=== PATIENT | female | born 1990 | race Hispanic/Latino ===

== ENCOUNTER 2018-07-06 04:00 | Emergency (ER) | payer OTHER ==
[~2018-07-06] VITALS: Ht 165.1 cm; Wt 86.2 kg
--- OUTSIDE RECORDS SUMMARY | 2018-07-06 04:04 | XMS REPORT | Summary of Care ---
Author Author [facility] Organization [facility] Address Unknown Phone Unavailable Encounter HQ Encntr_alias(FIN) [id number] Date(s): 05/14/16 - 05/14/16 [facility] [id number] [place] [address]- Discharge Disposition: Home or Self Care Attending Physician: Shabbir Chung MD Referring Physician: Shabbir Chung MD Vital Signs No data available for this section Problem List No data available for this section Allergies, Adverse Reactions, Alerts No data available for this section Medications No data available for this section Results No data available for this section Immunizations No data available for this section Procedures No data available for this section Social History No data available for this section Assessment and Plan No data available for this section
--- OUTSIDE RECORDS SUMMARY | 2018-07-06 04:04 | XMS REPORT | Continuity of Care Document ---
Author Author [facility] Interface Address Unknown Phone Unavailable Problems Problem Status Onset Date Classification Date Reported Comments Source 1, 0, EDC: 02/05/17- 39 WKS, 0 DAYS Active 01/23/2017 [facility] Discharge Diagnosis: False labor before 37 completed weeks of gestation in third trimester 01/20/2017 01/23/2017 [facility] Resolved 01/20/2017 Problem 02/12/2017 [facility] ABD PAIN Active 01/20/2017 [facility] Discharge Diagnosis: Acute vaginitis 01/14/2017 01/17/2017 [facility] Discharge Diagnosis: 01/14/2017 01/17/2017 [facility] CONTRACTIONS Active 01/14/2017 [facility] ALLERGIC REACTION Active 01/05/2017 [facility] Discharge Diagnosis: Urethritis 09/19/2016 09/22/2016 [facility] CRAMPING Active 09/19/2016 [facility] R19.01 RIGHT UPPER QUADRANT ABDOMINAL SW Active 05/18/2016 [facility] R10.9 UNSPECIFIED ABDOMINAL PAIN, R10.11 Active 05/09/2016 [facility] 40 weeks gestation of Active Problem 02/12/2017 [facility] FAILED INDUCTION OF LABOR, UNSPECIFIED Active [facility] Medications Medication Details Route Status Patient Instructions Ordering Provider Order Date Source ibuprofen 600 mg oral tablet 600 mg=1 tab, PO, Q6H, # 30 caplet, 0 Refill(s) No Longer Active 02/09/2017 [facility] Ibuprofen 600 mg, 1 tab, Route: PO, Drug form: TAB, Q6H, Dosing Weight 106.364, kg, Start date: 02/07/17 12:00:00 CDT, Duration: 30 day, Stop date: 03/09/17 6:00:00 CDTNotes: (Same as: Motrin) "Do Not Crush" Take with food. No Longer Active 02/07/2017 [facility] Multivitamins oral tablet 1 tab, Route: PO, Drug Form: TAB, Dosing Weight 106.364, kg, Daily, Start date: 02/07/17 9:00:00 CDT, Duration: 30 day, Stop date: 03/08/17 9:00:00 CDT No Longer Active 02/07/2017 [facility] Acetaminophen 325 MG / Hydrocodone Bitartrate 5 MG Oral Tablet 1 tab, Route: PO, Drug Form: TAB, Dosing Weight 106.364, kg, Q4H, PRN Pain Score 4-6, Start date: 02/07/17 7:10:00 CDT, Duration: 30 day, Stop date: 03/09/17 7:09:00 CDTNotes: (Same as: [place] 325/5) Do not exceed 4gm/day of acetaminophen. No Longer Active 02/07/2017 [facility] Acetaminophen 325 MG / Hydrocodone Bitartrate 10 MG Oral Tablet 1 tab, Route: PO, Drug Form: TAB, Dosing Weight 106.364, kg, Q4H, PRN Pain Score 7-10, Start date: 02/07/17 7:10:00 CDT, Duration: 30 day, Stop date: 03/09/17 7:09:00 CDTNotes: Do not exceed 4gm/day of acetaminophen. (Same as: [place] 325/10) No Longer Active 02/07/2017 [facility] Lactated Ringers 1,000 mL 1,000 mL, Rate: 100 ml/hr, Infuse over: 10 hr, Route: IV, Dosing Weight 106.364 kg, Total Volume: 1,000, Start date: 02/07/17 7:10:00 CDT, Duration: 30 day, Stop date: 03/09/17 7:09:00 CDT No Longer Active 02/07/2017 [facility] Oxytocin 30 unit, 500 mL, Rate: 42 ml/hr, Infuse over: 11.9 hr, Dosing Weight 106.364, kg, Route: IV, Total Volume: 500 mL, Start date: 02/07/17 7:10:00 CDT, Duration: 2 day, Stop date: 02/09/17 7:09:00 CDT, Replace Every: 11.9 hr No Longer Active 02/07/2017 [facility] lanolin topical 1 appl, Route: TOP, PRN, Drug form: CRM, PRN Other -See Comment, Start date: 02/07/17 7:10:00 CDT, Duration: 30 day, Stop date: 03/09/17 7:09:00 CDT No Longer Active 02/07/2017 [facility] zolpidem 5 mg, 1 tab, Route: PO, Drug form: TAB, Bedtime, Dosing Weight 106.364, kg, PRN Sleep, Start date: 02/07/17 7:10:00 CDT, Duration: 30 day, Stop date: 03/09/17 7:09:00 CDTNotes: (Same As: Ambien) No Longer Active 02/07/2017 [facility] Methylergonovine 0.2 mg, 1 mL, Route: IM, Drug form: INJ, PRN, Dosing Weight 106.364, kg, PRN Other -See Comment, Start date: 02/07/17 7:10:00 CDT, Duration: 30 day, Stop date: 03/09/17 7:09:00 CDTNotes: (Same as:Methergine) No Longer Active 02/07/2017 [facility] Benzocaine 200 MG/ML Topical Putney [Dermoplast] 1 spray, Route: TOP, PRN, Drug form: SPRY, PRN Irritation, Start date: 02/07/17 7:10:00 CDT, Duration: 30 day, Stop date: 03/09/17 7:09:00 CDTNotes: (Same As: Dermoplast) WASTE: Aerosol - Return to Pharmacy FOR EXTERNAL USE ONLY No Longer Active 02/07/2017 [facility] Docusate 100 mg, 1 cap, Route: PO, Drug form: CAP, BID, Dosing Weight 106.364, kg, PRN Constipation, Start date: 02/07/17 7:10:00 CDT, Duration: 30 day, Stop date: 03/09/17 7:09:00 CDTNotes: (Same as: Colace) (Do Not Crush) No Longer Active 02/07/2017 [facility] Ondansetron 4 mg, 2 mL, Route: IVP, Drug form: INJ, Q8H, Dosing Weight 106.364, kg, PRN Nausea & Vomiting, Start date: 02/07/17 7:10:00 CDT, Duration: 30 day, Stop date: 03/09/17 7:09:00 CDTNotes: (Same as: Zofran) MEDICATION WASTE Product Size: 4 mg Product Wasted: ___ mg No Longer Active 02/07/2017 [facility] Bisacodyl 15 mg, 3 tab, Route: PO, Drug form: ECTAB, Daily, Dosing Weight 106.364, kg, PRN Other -See Comment, Start date: 02/07/17 7:10:00 CDT, Duration: 30 day, Stop date: 03/09/17 7:09:00 CDTNotes: (Same As: Alejandra ulcolax Correctol) (Do Not Crush) "Do Not Crush" No Longer Active 02/07/2017 [facility] Ampicillin 2 gm, Route: IVPB, ABXQ6H, Dosing Weight 106.364, kg, Start date: 02/07/17 4:00:00 CDT, Duration: 30 day, Stop date: 03/08/17 22:00:00 CDTNotes: (Same as: Chung) MEDICATION WASTE Product Size: 2000 mg Product Wasted: ___ mg No Longer Active 02/07/2017 [facility] Tylenol 325 mg, 1 tab, Route: PO, Drug form: TAB, Q6H, Dosing Weight 106.364, kg, PRN For Temp > 100.4 F, Start date: 02/07/17 3:24:00 CDT, Duration: 30 day, Stop date: 03/09/17 3:23:00 CDTNotes: Do not exceed 4 gm/day. (Same as: Tylenol) No Longer Active 02/07/2017 [facility] Misoprostol 25 microgram, 0.25 tab, Route: VAG, Drug form: TAB, Q3H, Dosing Weight 106.364, kg, Start date: 02/05/17 20:00:00 CDT, Duration: 30 day, Stop date: 03/07/17 17:00:00 CDTNotes: (Same as:Cytotec) Victor Hugo e with food No Longer Active 02/06/2017 [facility] Famotidine 20 mg, 2 mL, Route: IVP, Drug form: INJ, ONCALL, Dosing Weight 106.364, kg, Start date: 02/05/17 20:00:00 CDT, Duration: 30 day, Stop date: 03/07/17 19:59:00 CDTNotes: (Same as: Pepcid) Can be dilute in 5- 10cc NS IVP: Slow IV push over at least 2 minutes. No Longer Active 02/06/2017 [facility] Methylergonovine 0.2 mg, 1 mL, Route: IM, Drug form: INJ, ONCALL, Dosing Weight 106.364, kg, Start date: 02/05/17 20:00:00 CDT, Duration: 30 day, Stop date: 03/07/17 19:59:00 CDTNotes: (Same as:Methergine) No Longer Active 02/06/2017 [facility] Citric Acid / sodium citrate 30 mL, Route: PO, Drug Form: SOLN, Dosing Weight 106.364, kg, ONCALL, Start date: 02/05/17 20:00:00 CDT, Duration: 30 day, Stop date: 03/07/17 19:59:00 CDTNotes: (Same As: Bicitra) No Longer Active 02/06/2017 [facility] Carboprost 250 microgram, 1 mL, Route: IM, Drug form: INJ, ONCALL, Dosing Weight 106.364, kg, Start date: 02/05/17 20:00:00 CDT, Duration: 30 day, Stop date: 03/07/17 19:59:00 CDTNotes: (Same As: Hemabate) No Longer Active 02/06/2017 [facility] Oxytocin 30 unit, 500 mL, Rate: Titrate, Dosing Weight 106.364, kg, Route: IV, Total Volume: 500 mL, Start date: 02/05/17 19:15:00 CDT, Duration: 2 day, Stop date: 02/07/17 19:14:00 CDT, Replace Every: 24 hr No Longer Active 02/06/2017 [facility] Butorphanol 2 mg, 1 mL, Route: IVP, Drug form: INJ, Q2H, Dosing Weight 106.364, kg, PRN Pain Score 7-10, Start date: 02/05/17 19:13:00 CDT, Duration: 30 day, Stop date: 03/07/17 19:12:00 CDTNotes: (Same As: Stadol) MEDICATION WASTE Product Size: 2 mg Product Wasted: ___ mg No Longer Active 02/06/2017 [facility] Lidocaine Hydrochloride 10 MG/ML Injectable Solution 50 mg, 5 mL, Route: PERCUT, Drug Form: INJ, Dosing Weight 106.364, kg, PRN, PRN Other -See Comment, Start date: 02/05/17 19:13:00 CDT, Duration: 1 doses or times, Stop date: Limited # of timesNotes: (Same as: Xylocaine) No Longer Active 02/06/2017 [facility] Ondansetron 4 mg, 2 mL, Route: IVP, Drug form: INJ, Q8H, Dosing Weight 106.364, kg, PRN Nausea & Vomiting, Start date: 02/05/17 19:13:00 CDT, Duration: 30 day, Stop date: 03/07/17 19:12:00 CDTNotes: (Same as: Zofrsamantha) MEDICATION WASTE Product Size: 4 mg Product Wasted: ___ mg No Longer Active 02/06/2017 [facility] Acetaminophen 325 MG / Hydrocodone Bitartrate 5 MG Oral Tablet 2 tab, Route: PO, Drug Form: TAB, Dosing Weight 106.364, kg, Q4H, PRN Pain Score 7-10, Start date: 02/05/17 19:13:00 CDT, Duration: 30 day, Stop date: 03/07/17 19:12:00 CDTNotes: (Same as: [place] 325/5) Do not exceed 4gm/day of acetaminophen. No Longer Active 02/06/2017 [facility] Ibuprofen 600 mg, 1 tab, Route: PO, Drug form: TAB, Q6H, Dosing Weight 106.364, kg, PRN Other -See Comment, Start date: 02/05/17 19:13:00 CDT, Duration: 30 day, Stop date: 03/07/17 19:12:00 CDTNotes: (Same as: Motrin) "Do Not Crush" Take with food. No Longer Active 02/06/2017 [facility] Terbutaline 0.25 mg, 0.25 mL, Route: SUB-Q, Drug form: INJ, PRN, Dosing Weight 106.364, kg, PRN Other -See Comment, Start date: 02/05/17 19:13:00 CDT, Duration: 1 doses or times, Stop date: Limited # of timesNotes: DO NOT USE IN TRAFFIC OBSERVER AREA (Same As: Landon) No Longer Active 02/06/2017 [facility] Oxytocin 30 unit, 500 mL, Rate: 42 ml/hr, Infuse over: 11.9 hr, Dosing Weight 106.364, kg, Route: IV, Total Volume: 500 mL, Start date: 02/05/17 19:13:00 CDT, Duration: 2 day, Stop date: 02/07/17 19:12:00 CDT, Replace Every: 11.9 hr No Longer Active 02/06/2017 [facility] Calcium Chloride 0.0014 MEQ/ML / Potassium Chloride 0.004 MEQ/ML / Sodium Chloride 0.103 MEQ/ML / Sodium Lactate 0.028 MEQ/ML Injectable Solution 1,000 mL, 1,000 ml/hr, Infuse Over: 1 hr, Route: IV, 1,000, Drug form: INJ, ONCE, Dosing Weight 106.364 kg, Start date: 02/05/17 19:13:00 CDT, Stop date: 02/05/17 19:13:00 CDT, Bolus for regional anesthesia per unit protocol No Longer Active 02/06/2017 [facility] Lactated Ringers 1,000 mL 1,000 mL, Rate: 125 ml/hr, Infuse over: 8 hr, Route: IV, Dosing Weight 106.364 kg, Total Volume: 1,000, Start date: 02/05/17 19:13:00 CDT, Duration: 30 day, Stop date: 03/07/17 19:12:00 CDT No Longer Active 02/06/2017 [facility] 1 oral capsule 0 Refill(s) Active 01/21/2017 [facility] Metronidazole 0.0075 MG/MG Vaginal Gel [MetroGel] 1 appl, VAG, Bedtime, X 5 day, # 1 ea, 0 Refill(s) Active 01/15/2017 [facility] Azithromycin 1,000 mg, 4 tab, Route: PO, Drug form: TAB, ONCE, Dosing Weight 93.182, kg, Start date: 09/19/16 17:09:00 CDT, Stop date: 09/19/16 17:09:00 CDTNotes: Take 1 hour before or 2 hours after meals. (Same As: Zithromax) Inactive 09/19/2016 [facility] Ceftriaxone 250 mg, Route: IM, Drug form: PDR/INJ, ONCE, Dosing Weight 93.182, kg, Priority: STAT, Start date: 09/19/16 17:09:00 CDT, Stop date: 09/19/16 17:09:00 CDTNotes: (Same As: Rocephin) Inactive 09/19/2016 [facility] Allergies, Adverse Reactions, Alerts Substance Category Reaction Severity Reaction type Status Date Reported Comments Source Immunizations Immunization Date Given Site Status Last Updated Comments Source diphtheria/pertussis, acel/tetanus adult 02/09/2017 Not Given [facility] Results Order Name Results Value Reference Range Date Interpretation Comments Source HEMATOLOGY Hct 31.6 % 36.0 - 48.0 02/08/2017 [facility] HEMATOLOGY Hgb 10.7 g/dL 12.0 - 16.0 02/08/2017 [facility] BLOOD BANK RESULTS ABO/Rh O POS 02/06/2017 [facility] BLOOD BANK RESULTS Antibody Scrn Negative (02/05/17 7:25 PM) 02/06/2017 [facility] BLOOD BANK RESULTS Rhig Reqd See Note 1 (02/05/17 7:25 PM) 02/06/2017 Result Comment: 02/05/2017 20:21 [id number] This patient is not a candidate for Rh(O)D immune globulin. [facility] Segs 64.4 % 45.0 - 75.0 02/06/2017 [facility] Segs-Bands # 6.3 K/CMM 1.5 - 8.1 02/06/2017 [facility] Eosinophils 1.1 % 0.0 - 4.0 02/06/2017 [facility] Lymphocytes 26.2 % 20.0 - 40.0 02/06/2017 [facility] Basophils 0.5 % 0.0 - 1.0 02/06/2017 [facility] Monocytes 7.8 % 2.0 - 12.0 02/06/2017 [facility] Monocytes # 0.8 K/CMM 0.0 - 0.8 02/06/2017 [facility] HEMATOLOGY Eosinophils # 0.1 K/CMM 0.0 - 0.5 02/06/2017 [facility] Lymphocytes # 2.5 K/CMM 1.0 - 5.5 02/06/2017 [facility] HEMATOLOGY MCV 83.1 fL 80.0 - 98.0 02/06/2017 [facility] Hgb 12.1 g/dL 12.0 - 16.0 02/06/2017 [facility] HEMATOLOGY MCH 28.3 pg 27.0 - 31.0 02/06/2017 [facility] HEMATOLOGY Hct 35.7 % 36.0 - 48.0 02/06/2017 [facility] MPV 8.3 fL 7.4 - 10.4 02/06/2017 [facility] MCHC 34.0 g/dL 32.0 - 36.0 02/06/2017 [facility] HEMATOLOGY Platelet 264 K/CMM 133 - 450 02/06/2017 [facility] RDW 14.8 % 11.5 - 14.5 02/06/2017 [facility] WBC 9.7 K/CMM 3.7 - 10.4 02/06/2017 [facility] RBC 4.29 M/CMM 4.20 - 5.40 02/06/2017 [facility] IMMUNOLOGY HIV. Negative *NA* (02/05/17 7:25 PM) Negative 02/06/2017 [facility] Hep Bs Ag Negative *NA* (02/05/17 7:25 PM) Negative 02/06/2017 [facility] IMMUNOLOGY Treponemal Scr Non Reactive *NA* (02/05/17 7:25 PM) Non Reactive 02/06/2017 [facility] BODY FLUIDS Amnisure ROM Negative 1 (01/20/17 6:53 PM) Negative 01/20/2017 Result Comment: "Significant Findings called to Anjelica Pang at 01/20/2017 19:33 by Harini Perkins. Read Back OK." [facility] URINE AND STOOL UA Urobilinogen <=1.0 mg/dL 0.1 - 1.0 01/20/2017 [facility] URINE AND STOOL UA Amorph Olivia Occasional /HPF None Seen /HPF 01/20/2017 [facility] URINE AND STOOL UA Mucus Few /LPF None Seen /LPF 01/20/2017 [facility] URINE AND STOOL UA Leuk Est Large *ABN* (01/20/17 6:53 PM) Negative 01/20/2017 [facility] URINE AND STOOL UA Nitrite Negative (01/20/17 6:53 PM) Negative 01/20/2017 [facility] URINE AND STOOL UA Blood Negative (01/20/17 6:53 PM) Negative 01/20/2017 [facility] URINE AND STOOL UA Bili Negative *NA* (01/20/17 6:53 PM) Negative 01/20/2017 [facility] URINE AND STOOL UA WBC 26 /HPF 0 - 5 01/20/2017 [facility] URINE AND STOOL UA Sq Epi Moderate /LPF Few /LPF 01/20/2017 [facility] URINE AND STOOL UA Bacteria Occasional /HPF None Seen /HPF 01/20/2017 [facility] URINE AND STOOL UA RBC 4 /HPF 0 - 2 01/20/2017 [facility] URINE AND STOOL UA Turbidity Marked *ABN* (01/20/17 6:53 PM) Clear 01/20/2017 [facility] URINE AND STOOL UA pH 7.0 5.0 - 8.0 01/20/2017 [facility] URINE AND STOOL UA Spec Grav 1.012 <=1.030 01/20/2017 [facility] URINE AND STOOL UA Glucose Negative mg/dL Negative mg/dL 01/20/2017 [facility] URINE AND STOOL UA Protein Negative mg/dL Negative mg/dL 01/20/2017 [facility] URINE AND STOOL UA Ketones Negative mg/dL Negative mg/dL 01/20/2017 [facility] URINE AND STOOL UA Color Yellow *NA* (01/20/17 6:53 PM) Yellow 01/20/2017 [facility] URINE AND STOOL UA Urobilinogen <=1.0 mg/dL 0.1 - 1.0 01/15/2017 [facility] URINE AND STOOL UA Ketones Negative mg/dL Negative mg/dL 01/15/2017 [facility] URINE AND STOOL UA Blood Negative (01/14/17 7:57 PM) Negative 01/15/2017 [facility] URINE AND STOOL UA WBC 35 /HPF 0 - 5 01/15/2017 [facility] URINE AND STOOL UA Bacteria Occasional /HPF None Seen /HPF 01/15/2017 [facility] URINE AND STOOL UA RBC 3 /HPF 0 - 2 01/15/2017 [facility] URINE AND STOOL UA Nitrite Negative (01/14/17 7:57 PM) Negative 01/15/2017 [facility] URINE AND STOOL UA Leuk Est Large *ABN* (01/14/17 7:57 PM) Negative 01/15/2017 [facility] URINE AND STOOL UA Bili Negative *NA* (01/14/17 7:57 PM) Negative 01/15/2017 [facility] URINE AND STOOL UA Sq Epi Many /LPF Few /LPF 01/15/2017 [facility] URINE AND STOOL UA Turbidity Slight *ABN* (01/14/17 7:57 PM) Clear 01/15/2017 [facility] URINE AND STOOL UA Color Yellow *NA* (01/14/17 7:57 PM) Yellow 01/15/2017 [facility] URINE AND STOOL UA Spec Grav 1.012 <=1.030 01/15/2017 [facility] URINE AND STOOL UA Protein Negative mg/dL Negative mg/dL 01/15/2017 [facility] URINE AND STOOL UA pH 7.0 5.0 - 8.0 01/15/2017 [facility] URINE AND STOOL UA Glucose Negative mg/dL Negative mg/dL 01/15/2017 [facility] URINE AND STOOL UA RBC 1 /HPF 0 - 2 09/19/2016 [facility] URINE AND STOOL UA WBC 3 /HPF 0 - 5 09/19/2016 [facility] URINE AND STOOL UA Sq Epi Occasional /LPF Few /LPF 09/19/2016 [facility] URINE AND STOOL UA Bacteria Occasional /HPF None Seen /HPF 09/19/2016 [facility] URINE AND STOOL UA Leuk Est Trace *ABN* (09/19/16 5:09 PM) Negative 09/19/2016 [facility] URINE AND STOOL UA Color Yellow *NA* (09/19/16 5:09 PM) Yellow 09/19/2016 [facility] URINE AND STOOL UA Turbidity Clear (09/19/16 5:09 PM) Clear 09/19/2016 [facility] URINE AND STOOL UA pH 6.0 5.0 - 8.0 09/19/2016 [facility] URINE AND STOOL UA Glucose Negative (09/19/16 5:09 PM) Negative 09/19/2016 [facility] URINE AND STOOL UA Protein Negative (09/19/16 5:09 PM) Negative 09/19/2016 [facility] URINE AND STOOL UA Blood Negative (09/19/16 5:09 PM) Negative 09/19/2016 [facility] URINE AND STOOL UA Nitrite Negative (09/19/16 5:09 PM) Negative 09/19/2016 [facility] URINE AND STOOL UA Bili Negative *NA* (09/19/16 5:09 PM) Negative 09/19/2016 [facility] URINE AND STOOL UA Urobilinogen 0.2 EU/dL 0.1 - 1.0 09/19/2016 [facility] URINE AND STOOL UA Spec Grav 1.010 <=1.030 09/19/2016 [facility] URINE AND STOOL UA Ketones Negative *NA* (09/19/16 5:09 PM) Negative 09/19/2016 [facility] Abdomen w/wo contrast MRI Abdomen w/wo contrast MRI AP Patient Name: ENRRIQUE KAMARA : 1990; Age: 26 years y/o Female MR: [id number] Study: Abdomen w/wo contrast MRI 05/22/2016 7:09 PM [employer] CLINICAL INDICATION: R19.01 Right upper quadrant abdominal swelling, mass and lump. Per patient, RUQ pain for the past 3 months. 18 mL Multihance Powerinject used @ the rate of 2mL/S. Lot#: [id number] Exp: 11/2018 COMPARISON: Abdominal ultrasound on 05/14/2016 TECHNIQUE: Magnetic resonance imaging of the abdomen was performed with multiplanar reformations obtained after the administration of IV contrast. FINDINGS: LIVER: Normal liver contour and morphology with normal liver signal intensity. INTRAHEPATIC BILE DUCTS: No intrahepatic biliary ductal dilatation. GALLBLADDER: Focal structure (5 x 7 mm) within the gallbladder fundus demonstrates a cystic rim and a central T2 hypointense component. The cystic rim likely represents dilated Rokitansky-Aschoff sinuses. The central component demonstrates vague enhancement. No evidence of gallbladder wall thickening or pericholecystic fluid. COMMON BILE DUCT: The extrahepatic bile duct measures less than 6 mm in maximal diameter. Normal contour and tapering of the common bile duct. SPLEEN: Normal in size and signal. PANCREAS: No mass or ductal dilatation. ADRENALS: No nodules. KIDNEY: The kidneys appear normal without hydronephrosis. AORTA: The abdominal aorta appears normal. IVC: The inferior vena cava regions appear normal. LYMPH NODES: No significant lymphadenopathy. IMPRESSION: Subcentimeter structure within the gallbladder fundus likely represents a fundal adenomyoma. SL: [id number] 05/22/2016 - - Read by: Richa Harris MD Dictated Date/time: 05/23/16 08:40 Electronically Signed by: Richa Harris MD 05/23/16 09:07 FINAL REPORT [facility] Abdomen complete US Abdomen complete US Clinical Indication: RUQ pain, Right flank pain; Comparison: None TECHNIQUE: Grayscale and limited color sonographic evaluation of the abdomen was performed with standard technique. FINDINGS: LIVER: The visualized liver shows normal contour, size, and morphology with normal parenchymal echo texture. BILE DUCTS: The intrahepatic and extrahepatic bile ducts are not dilated with the common bile duct measuring 5 mm. The distal common bile duct is not well seen. GALLBLADDER: An echogenic structure at the gallbladder fundus measures 2.2 x 1.2 x 1.3 cm. This contains several nonshadowing echogenic structures with cocktail artifact. No vascularity on color Doppler. PANCREAS: The pancreas is not seen well. SPLEEN: The spleen is unremarkable and measures 10.8 x 7.4 x 6.1 cm. KIDNEY: The right kidney measures 11.5 x 4.3 x 5.4 cm. The left kidney measures 10.3 x 5 x 5.2 cm. There is normal renal contour and morphology, with normal parenchymal echotexture. There is no hydronephrosis. AORTA AND INFERIOR VENA CAVA: Visualized portions appear unremarkable. ASCITES: There is no right abdominal ascites. IMPRESSION: 1. The finding at the fundus of the gallbladder is most likely due to focal adenomyomatosis. However, given the size and somewhat masslike appearance, recommend MRI of the abdomen without and with contrast to exclude other less likely pathology such as neoplasm. 2. No other sonographic abnormalities of the abdomen. SL: [id number] 05/14/2016 - - Read by: José Miguel Chambers MD Dictated Date/time: 05/15/16 07:26 Electronically Signed by: José Miguel Chambers MD 05/15/16 07:32 FINAL REPORT [facility] Vital Signs Vital Sign Value Date Comments Source Systolic (mm Hg) 119 02/09/2017 [facility] Diastolic (mm Hg) 76 02/09/2017 [facility] Heart Rate 79 02/09/2017 [facility] Respitory Rate 16 02/09/2017 [facility] Temperature Oral (F) 98.2 F 02/09/2017 [facility] Systolic (mm Hg) 124 02/09/2017 [facility] Diastolic (mm Hg) 82 02/09/2017 [facility] Heart Rate 76 02/09/2017 [facility] Temperature Oral (F) 97.7 F 02/09/2017 [facility] Respitory Rate 16 02/09/2017 [facility] Temperature Oral (F) 97.7 F 02/09/2017 [facility] Respitory Rate 16 02/09/2017 [facility] Systolic (mm Hg) 128 02/09/2017 [facility] Diastolic (mm Hg) 86 02/09/2017 [facility] Heart Rate 85 02/09/2017 [facility] Height 167.64 cm 02/05/2017 [facility] Weight 106.364 02/05/2017 [facility] BMI Calculated 37.85 02/05/2017 [facility] Systolic (mm Hg) 125 01/21/2017 [facility] Diastolic (mm Hg) 76 01/21/2017 [facility] Temperature Oral (F) 98.4 F 01/21/2017 [facility] Heart Rate 84 01/21/2017 [facility] Respitory Rate 18 01/21/2017 [facility] Systolic (mm Hg) 125 01/21/2017 [facility] Diastolic (mm Hg) 76 01/21/2017 [facility] Height 165.1 cm 01/21/2017 [facility] Temperature Oral (F) 98.2 F 01/21/2017 [facility] Weight 103.182 01/21/2017 [facility] BMI Calculated 37.85 01/21/2017 [facility] Respitory Rate 18 01/21/2017 [facility] Heart Rate 85 01/21/2017 [facility] Systolic (mm Hg) 132 01/21/2017 [facility] Diastolic (mm Hg) 79 01/21/2017 [facility] Systolic (mm Hg) 117 01/15/2017 [facility] Diastolic (mm Hg) 80 01/15/2017 [facility] Systolic (mm Hg) 116 01/15/2017 [facility] Diastolic (mm Hg) 70 01/15/2017 [facility] Systolic (mm Hg) 135 01/15/2017 [facility] Diastolic (mm Hg) 80 01/15/2017 [facility] Height 165.1 cm 01/15/2017 [facility] BMI Calculated 37.85 01/15/2017 [facility] Weight 103.182 01/15/2017 [facility] Temperature Oral (F) 97.7 F 01/15/2017 [facility] Respitory Rate 18 01/15/2017 [facility] Heart Rate 82 01/15/2017 [facility] BMI Calculated 37.52 01/05/2017 [facility] Height 165.1 cm 01/05/2017 [facility] Temperature Oral (F) 99.3 F 01/05/2017 [facility] Heart Rate 83 01/05/2017 [facility] Respitory Rate 18 01/05/2017 [facility] Systolic (mm Hg) 139 01/05/2017 [facility] Diastolic (mm Hg) 91 01/05/2017 [facility] Weight 102.273 01/05/2017 [facility] Temperature Oral (F) 99.0 F 09/19/2016 [facility] Respitory Rate 18 09/19/2016 [facility] Weight 93.182 09/19/2016 [facility] Heart Rate 92 09/19/2016 [facility] Systolic (mm Hg) 132 09/19/2016 [facility] Diastolic (mm Hg) 77 09/19/2016 [facility] Height 167.64 cm 09/19/2016 [facility] BMI Calculated 33.16 09/19/2016 [facility] Encounters Location Location Details Encounter Type Encounter Number Reason For Visit Attending Provider ADM Date DC Date Status Source [facility] [facility] [id number] Shabbir Chung 05/14/2016 05/15/2016 [facility] Outpatient [id number] Shabbir Chung 05/23/2016 05/23/2016 [facility] Emergency [id number] Jeanine Noel 09/19/2016 09/19/2016 [facility] Emergency [id number] Yvon Muniz 01/05/2017 01/05/2017 [facility] Emergency [id number] Jeanine Noel 01/15/2017 01/15/2017 [facility] Emergency [id number] Jennifer Claros 01/20/2017 01/21/2017 [facility] Inpatient [id number] Jaspal Asumugha 02/05/2017 02/09/2017 [facility] Procedures Procedure Code Date Perfomer Comments Source Appendix operation [id number] 06/03/2003 [facility]
--- OUTSIDE RECORDS SUMMARY | 2018-07-06 04:04 | XMS REPORT | Summary of Care ---
Author Author [facility] Organization [facility] Address Unknown Phone Unavailable Encounter HQ Encntr_alias(FIN) [id number] Date(s): 05/22/16 - 05/22/16 [facility] [address] [place] [address]- Discharge Disposition: Home or Self Care Attending [...]
--- OUTSIDE RECORDS SUMMARY | 2018-07-06 04:05 | XMS REPORT | Summary of Care ---
Author Author [facility] Organization [facility] Address Unknown Phone Unavailable Encounter JAY Ortiz(IAN) [id number] Date(s): 01/14/17 - 01/14/17 [facility] [address] [place] [address]- Discharge Diagnosis: Acute vaginitis Discharge Diagnosis: Discharge Disposition: Home or Self Care Attending Physician: Jeanine Noel MD Vital Signs 1 2 3 Most recent to oldest [Reference Range]: 165.1 cm (01/14/17 7:50 PM) Height 97.7 DegF (01/14/17 7:50 PM) Temperature Oral [96.4-99.1 DegF] 117/80 mmHg (01/14/17 8:45 PM) 116/70 mmHg (01/14/17 8:30 PM) 135/80 mmHg (01/14/17 8:15 PM) Blood Pressure [90-140/60-90 mmHg] 18 BRMIN (01/14/17 7:50 PM) Respiratory Rate [14-20 BRMIN] 82 bpm (01/14/17 7:50 PM) Peripheral Pulse Rate [60-100 bpm] 103.182 kg (01/14/17 7:50 PM) Weight 37.85 m2 (01/14/17 7:50 PM) Body Mass Index Problem List No data available for this section Allergies, Adverse Reactions, Alerts Substance Reaction Severity Status NKDA Active Medications MetroGel-Vaginal 0.75% gel with applicator 1 appl, VAG, Bedtime, X 5 day, # 1 ea, 0 Refill(s) Start Date: 01/14/17 Stop Date: 01/19/17 Status: Ordered Results URINE AND STOOL Most recent to 1 oldest [Reference Range]: UA Turbidity [Clear] Slight *ABN* (01/14/17 7:57 PM) UA Color [Yellow] Yellow *NA* (01/14/17 7:57 PM) UA pH [5.0-8.0] 7.0 (01/14/17 7:57 PM) UA Spec Grav 1.012 [<=1.030] (01/14/17 7:57 PM) UA Glucose [Negative Negative mg/dL mg/dL] *NA* (01/14/17 7:57 PM) UA Blood [Negative] Negative (01/14/17 7:57 PM) UA Ketones [Negative Negative mg/dL mg/dL] *NA* (01/14/17 7:57 PM) UA Protein [Negative Negative mg/dL mg/dL] (01/14/17 7:57 PM) UA Urobilinogen <=1.0 mg/dL [0.1-1.0 mg/dL] *NA* (01/14/17 7:57 PM) UA Bili [Negative] Negative *NA* (01/14/17 7:57 PM) UA Leuk Est Large [Negative] *ABN* (01/14/17 7:57 PM) UA Nitrite Negative [Negative] (01/14/17 7:57 PM) UA WBC [0-5 /HPF] 35 /HPF *HI* (01/14/17 7:57 PM) UA RBC [0-2 /HPF] 3 /HPF *HI* (01/14/17 7:57 PM) UA Bacteria [None Occasional /HPF Seen /HPF] *NA* (01/14/17 7:57 PM) UA Sq Epi [Few /LPF] Many /LPF *ABN* (01/14/17 7:57 PM) Immunizations No data available for this section Procedures Procedure Date Related Diagnosis Body Site Appendix operation 2003 Social History Social History Type Response Substance Abuse Use: None. Sexual Sexually active: Yes. Alcohol Never Smoking Status Never smoker; Exposure to Tobacco Smoke None; Cigarette Smoking Last 365 Days No; Reg Smoking Cessation Counseling No Assessment and Plan No data available for this section
--- OUTSIDE RECORDS SUMMARY | 2018-07-06 04:05 | XMS REPORT | Summary of Care ---
Author Author [facility] Organization [facility] Address Unknown Phone Unavailable Encounter HQ Rhett_adrienne(FIN) [id number] Date(s): 01/05/17 - 01/05/17 [facility] [address] [place] [address]- Discharge Disposition: Elopement Attending Physician: Yvon Muniz MD Vital Signs Most recent to 1 oldest [Reference Range]: Height 165.1 cm (01/05/17 3:35 PM) Temperature Oral 99.3 DegF [96.4-99.1 DegF] *HI* (01/05/17 3:35 PM) Blood Pressure 139/91 mmHg [90-140/60-90 mmHg] (01/05/17 3:35 PM) Respiratory Rate 18 BRMIN [14-20 BRMIN] (01/05/17 3:35 PM) Peripheral Pulse 83 bpm Rate [60-100 bpm] (01/05/17 3:35 PM) Weight 102.273 kg (01/05/17 3:35 PM) Body Mass Index 37.52 m2 (01/05/17 3:35 PM) Problem List No data available for this section Allergies, Adverse Reactions, Alerts Substance Reaction Severity Status NKDA Active Medications No data available for this section Results No data available for this section Immunizations No data available for this section Procedures Procedure Date Related Diagnosis Body Site Appendix operation 2003 Social History Social History Type Response Smoking Status Never smoker; Exposure to Tobacco Smoke None; Cigarette Smoking Last 365 Days No; Reg Smoking Cessation Counseling No Assessment and Plan No data available for this section
--- OUTSIDE RECORDS SUMMARY | 2018-07-06 04:05 | XMS REPORT | Summary of Care ---
Author Author [facility] Organization [facility] Address Unknown Phone Unavailable Encounter JAY Ortiz(IAN) [id number] Date(s): 01/20/17 - 01/20/17 [facility] [address] [place] [address]- [phone] Discharge Diagnosis: False labor before 37 completed weeks of gestation in third trimester Discharge Disposition: Home or Self Care Attending Physician: Jennifer Claros MD Vital Signs 1 2 3 Most recent to oldest [Reference Range]: 165.1 cm (01/20/17 7:43 PM) Height 98.4 DegF (01/20/17 8:01 PM) 98.2 DegF (01/20/17 7:43 PM) Temperature Oral [96.4-99.1 DegF] 125/76 mmHg (01/20/17 8:01 PM) 125/76 mmHg (01/20/17 8:00 PM) 132/79 mmHg (01/20/17 7:43 PM) Blood Pressure [90-140/60-90 mmHg] 18 BRMIN (01/20/17 8:01 PM) 18 BRMIN (01/20/17 7:43 PM) Respiratory Rate [14-20 BRMIN] 84 bpm (01/20/17 8:01 PM) 85 bpm (01/20/17 7:43 PM) Peripheral Pulse Rate [60-100 bpm] 103.182 kg (01/20/17 7:43 PM) Weight 37.85 m2 (01/20/17 7:43 PM) Body Mass Index Problem List Condition Effective Dates Status Health Status Informant (Confirmed) 01/20/17 Active Allergies, Adverse Reactions, Alerts Substance Reaction Severity Status NKDA Active Medications 1 oral capsule 0 Refill(s) Start Date: 01/20/17 Status: Ordered Results URINE AND STOOL Most recent to 1 oldest [Reference Range]: UA Turbidity [Clear] Marked *ABN* (01/20/17 6:53 PM) UA Color [Yellow] Yellow *NA* (01/20/17 6:53 PM) UA pH [5.0-8.0] 7.0 (01/20/17 6:53 PM) UA Spec Grav 1.012 [<=1.030] (01/20/17 6:53 PM) UA Glucose [Negative Negative mg/dL mg/dL] *NA* (01/20/17 6:53 PM) UA Blood [Negative] Negative (01/20/17 6:53 PM) UA Ketones [Negative Negative mg/dL mg/dL] *NA* (01/20/17 6:53 PM) UA Protein [Negative Negative mg/dL mg/dL] (01/20/17 6:53 PM) UA Urobilinogen <=1.0 mg/dL [0.1-1.0 mg/dL] *NA* (01/20/17 6:53 PM) UA Bili [Negative] Negative *NA* (01/20/17 6:53 PM) UA Leuk Est Large [Negative] *ABN* (01/20/17 6:53 PM) UA Nitrite Negative [Negative] (01/20/17 6:53 PM) UA WBC [0-5 /HPF] 26 /HPF *HI* (01/20/17 6:53 PM) UA RBC [0-2 /HPF] 4 /HPF *HI* (01/20/17 6:53 PM) UA Bacteria [None Occasional /HPF Seen /HPF] *NA* (01/20/17 6:53 PM) UA Sq Epi [Few /LPF] Moderate /LPF *ABN* (01/20/17 6:53 PM) UA Amorph Olivia [None Occasional /HPF Seen /HPF] *NA* (01/20/17 6:53 PM) UA Mucus [None Seen Few /LPF /LPF] *NA* (01/20/17 6:53 PM) BODY FLUIDS Most recent to 1 oldest [Reference Range]: Amnisure ROM Negative 1 [Negative] (01/20/17 6:53 PM) 1Result Comment: "Significant Findings called to Anjelica Pang at 01/20/2017 19:33 by Harini Perkins. Read Back OK." Immunizations No data available for this section Procedures Procedure Date Related Diagnosis Body Site Appendix operation 2004 Social History Social History Type Response Substance Abuse Use: None. Sexual Sexually active: Yes. Alcohol Never Smoking Status Never smoker; Exposure to Tobacco Smoke None; Cigarette Smoking Last 365 Days No; Reg Smoking Cessation Counseling No Assessment and Plan No data available for this section
--- OUTSIDE RECORDS SUMMARY | 2018-07-06 04:06 | XMS REPORT | Summary of Care ---
Author Author [facility] Organization [facility] Address Unknown Phone Unavailable Encounter HQ Diana(IAN) [id number] Date(s): 02/05/17 - 02/09/17 [facility] [address] [place] [address]- Discharge Disposition: Home or Self Care Attending Physician: Jaspal Abel MD Admitting Physician: Jaspal Abel MD Referring Physician: Jaspal Abel MD Vital Signs 1 2 3 Most recent to oldest [Reference Range]: 167.64 cm (02/05/17 6:39 PM) Height 98.2 DegF (02/09/17 12:12 PM) 97.7 DegF (02/09/17 7:20 AM) 97.7 DegF (02/09/17 3:20 AM) Temperature Oral [96.4-99.1 DegF] 119/76 mmHg (02/09/17 12:12 PM) 124/82 mmHg (02/09/17 7:20 AM) 128/86 mmHg (02/09/17 3:20 AM) Blood Pressure [90-140/60-90 mmHg] 16 BRMIN (02/09/17 12:12 PM) 16 BRMIN (02/09/17 7:20 AM) 16 BRMIN (02/09/17 3:20 AM) Respiratory Rate [14-20 BRMIN] 79 bpm (02/09/17 12:12 PM) 76 bpm (02/09/17 7:20 AM) 85 bpm (02/09/17 3:20 AM) Peripheral Pulse Rate [60-100 bpm] 106.364 kg (02/05/17 6:39 PM) Weight 37.85 m2 (02/05/17 6:39 PM) Body Mass Index Problem List Condition Effective Dates Status Health Status Informant 40 weeks gestation Active of (Confirmed) (Confirmed) 01/20/17 - 02/07/17 Resolved Allergies, Adverse Reactions, Alerts Substance Reaction Severity Status NKDA Active Medications acetaminophen-hydrocodone 325 mg-10 mg oral tablet 1 tab, Route: PO, Drug Form: TAB, Dosing Weight 106.364, kg, Q4H, PRN Pain Score 7-10, Start date: 02/07/17 7:10:00 CDT, Duration: 30 day, Stop date: 03/09/17 7 :09:00 CDT Notes: Do not exceed 4gm/day of acetaminophen. (Same as: Delta 325/10) Start Date: 02/07/17 Stop Date: 02/09/17 Status: Discontinued acetaminophen-hydrocodone 325 mg-5 mg oral tablet 1 tab, Route: PO, Drug Form: TAB, Dosing Weight 106.364, kg, Q4H, PRN Pain Score 4-6, Start date: 02/07/17 7:10:00 CDT, Duration: 30 day, Stop date: 03/09/17 7: 09:00 CDT Notes: (Same as: Delta 325/5) Do not exceed 4gm/day of acetaminophen. Start Date: 02/07/17 Stop Date: 02/09/17 Status: Discontinued acetaminophen-hydrocodone 325 mg-5 mg oral tablet 2 tab, Route: PO, Drug Form: TAB, Dosing Weight 106.364, kg, Q4H, PRN Pain Score 7-10, Start date: 02/05/17 19:13:00 CDT, Duration: 30 day, Stop date: 03/07/17 19:12:00 CDT Notes: (Same as: Delta 325/5) Do not exceed 4gm/day of acetaminophen. Start Date: 02/05/17 Stop Date: 02/07/17 Status: Discontinued acetaminophen-hydrocodone 325 mg-5 mg oral tablet 1 tab, Route: PO, Drug Form: TAB, Dosing Weight 106.364, kg, Q4H, PRN Pain Score 4-6, Start date: 02/05/17 19:13:00 CDT, Duration: 30 day, Stop date: 03/07/17 1 9:12:00 CDT Notes: (Same as: Delta 325/5) Do not exceed 4gm/day of acetaminophen. Start Date: 02/05/17 Stop Date: 02/07/17 Status: Discontinued ampicillin + sodium chloride 0.9% INJ 100 mL 2 gm, Route: IVPB, ABXQ6H, Dosing Weight 106.364, kg, Start date: 02/07/17 4:00: 00 CDT, Duration: 30 day, Stop date: 03/08/17 22:00:00 CDT Notes: (Same as: Chung) MEDICATION WASTE Product Size: [address] Wasted: ___ mg Start Date: 02/07/17 Stop Date: 02/09/17 Status: Discontinued bisacodyl 15 mg, 3 tab, Route: PO, Drug form: ECTAB, Daily, Dosing Weight 106.364, kg, PRN Other -See Comment, Start date: 02/07/17 7:10:00 CDT, Duration: 30 day, Stop da te: 03/09/17 7:09:00 CDT Notes: (Same As: Dulcolax, Correctol) (Do Not Crush) "Do Not Crush" Start Date: 02/07/17 Stop Date: 02/09/17 Status: Discontinued bisacodyl 10 mg, 1 supp, Route: WA, Drug form: SUPP, PRN, Dosing Weight 106.364, kg, PRN O ther -See Comment, Start date: 02/07/17 7:10:00 CDT, Duration: 30 day, Stop date : 03/09/17 7:09:00 CDT Notes: (Same As: Dulcolax, Bisco-Lax) Start Date: 02/07/17 Stop Date: 02/09/17 Status: Discontinued butorphanol 2 mg, 1 mL, Route: IVP, Drug form: INJ, Q2H, Dosing Weight 106.364, kg, PRN Pain Score 7-10, Start date: 02/05/17 19:13:00 CDT, Duration: 30 day, Stop date: 10/17 19:12:00 CDT Notes: (Same As: Stadol) MEDICATION WASTE Product Size: 2 mgProduct Was kojo: ___ mg Start Date: 02/05/17 Stop Date: 02/07/17 Status: Discontinued butorphanol 1 mg, 1 mL, Route: IVP, Drug form: INJ, Q2H, Dosing Weight 106.364, kg, PRN Pain Score 4-6, Start date: 02/05/17 19:13:00 CDT, Duration: 30 day, Stop date: 10/17 19:12:00 CDT Notes: (Same As: Stadol) Start Date: 02/05/17 Stop Date: 02/07/17 Status: Discontinued carboprost 250 microgram, 1 mL, Route: IM, Drug form: INJ, ONCALL, Dosing Weight 106.364, k g, Start date: 02/05/17 20:00:00 CDT, Duration: 30 day, Stop date: 03/07/17 19:5 9:00 CDT Notes: (Same As: Hemabate) Start Date: 02/05/17 Stop Date: 02/07/17 Status: Discontinued citric acid-sodium citrate 30 mL, Route: PO, Drug Form: SOLN, Dosing Weight 106.364, kg, ONCALL, Start date : 02/05/17 20:00:00 CDT, Duration: 30 day, Stop date: 03/07/17 19:59:00 CDT Notes: (Same As: Bicitra) Start Date: 02/05/17 Stop Date: 02/07/17 Status: Discontinued Dermoplast 20% topical spray 1 spray, Route: TOP, PRN, Drug form: SPRY, PRN Irritation, Start date: 02/07/17 7:10:00 CDT, Duration: 30 day, Stop date: 03/09/17 7:09:00 CDT Notes: (Same As: Dermoplast)WASTE: Aerosol - Return to Pharmacy FOR EXTERNAL US E ONLY Start Date: 02/07/17 Stop Date: 02/09/17 Status: Discontinued docusate 100 mg, 1 cap, Route: PO, Drug form: CAP, BID, Dosing Weight 106.364, kg, PRN Co nstipation, Start date: 02/07/17 7:10:00 CDT, Duration: 30 day, Stop date: 03/09 7:09:00 CDT Notes: (Same as: Colace) (Do Not Crush) Start Date: 02/07/17 Stop Date: 02/09/17 Status: Discontinued famotidine 20 mg, 2 mL, Route: IVP, Drug form: INJ, ONCALL, Dosing Weight 106.364, kg, Star t date: 02/05/17 20:00:00 CDT, Duration: 30 day, Stop date: 03/07/17 19:59:00 CD T Notes: (Same as: Pepcid)Can be dilute in 5-10cc NS IVP: Slow IV push over at le ast 2 minutes. Start Date: 02/05/17 Stop Date: 02/07/17 Status: Discontinued ibuprofen 600 mg, 1 tab, Route: PO, Drug form: TAB, Q6H, Dosing Weight 106.364, kg, Start date: 02/07/17 12:00:00 CDT, Duration: 30 day, Stop date: 03/09/17 6:00:00 CDT Notes: (Same as: Motrin)"Do Not Crush" Take with food. Start Date: 02/07/17 Stop Date: 02/09/17 Status: Discontinued ibuprofen 600 mg, 1 tab, Route: PO, Drug form: TAB, Q6H, Dosing Weight 106.364, kg, PRN Ot her -See Comment, Start date: 02/05/17 19:13:00 CDT, Duration: 30 day, Stop date : 03/07/17 19:12:00 CDT Notes: (Same as: Motrin)"Do Not Crush" Take with food. Start Date: 02/05/17 Stop Date: 02/07/17 Status: Discontinued ibuprofen 600 mg oral tablet 600 mg=1 tab, PO, Q6H, # 30 caplet, 0 Refill(s) Start Date: 02/09/17 Stop Date: 02/10/17 Status: Completed Lactated Ringers (Bolus) IV 1,000 mL, 1,000 ml/hr, Infuse Over: 1 hr, Route: IV, 1,000, Drug form: INJ, ONCE , Dosing Weight 106.364 kg, Start date: 02/05/17 19:13:00 CDT, Stop date: 19:13:00 CDT, Bolus for regional anesthesia per unit protocol Start Date: 02/05/17 Stop Date: 02/06/17 Status: Completed Lactated Ringers 1,000 mL 1,000 mL, Rate: 100 ml/hr, Infuse over: 10 hr, Route: IV, Dosing Weight 106.364 kg, Total Volume: 1,000, Start date: 02/07/17 7:10:00 CDT, Duration: 30 day, Sto p date: 03/09/17 7:09:00 CDT Start Date: 02/07/17 Stop Date: 02/09/17 Status: Discontinued Lactated Ringers 1,000 mL 1,000 mL, Rate: 125 ml/hr, Infuse over: 8 hr, Route: IV, Dosing Weight 106.364 k g, Total Volume: 1,000, Start date: 02/05/17 19:13:00 CDT, Duration: 30 day, Sto p date: 03/07/17 19:12:00 CDT Start Date: 02/05/17 Stop Date: 02/07/17 Status: Discontinued lanolin topical 1 appl, Route: TOP, PRN, Drug form: CRM, PRN Other -See Comment, Start date: 12/17 7:10:00 CDT, Duration: 30 day, Stop date: 03/09/17 7:09:00 CDT Start Date: 02/07/17 Stop Date: 02/09/17 Status: Discontinued lidocaine 1% 50 mg, 5 mL, Route: PERCUT, Drug Form: INJ, Dosing Weight 106.364, kg, PRN, PRN Other -See Comment, Start date: 02/05/17 19:13:00 CDT, Duration: 1 doses or time s, Stop date: Limited # of times Notes: (Same as: Xylocaine) Start Date: 02/05/17 Stop Date: 02/07/17 Status: Completed lidocaine 1% injectable solution 0.25 mL, Route: INTRADERM, Drug Form: INJ, Dosing Weight 106.364, kg, PRN, PRN O ther -See Comment, Start date: 02/05/17 19:13:00 CDT, Duration: 30 day, Stop gumaro e: 03/07/17 19:12:00 CDT Notes: Preservative free. (Same as: Xylocaine MPF) Start Date: 02/05/17 Stop Date: 02/07/17 Status: Discontinued methylergonovine 0.2 mg, 1 mL, Route: IM, Drug form: INJ, PRN, Dosing Weight 106.364, kg, PRN Oth er -See Comment, Start date: 02/07/17 7:10:00 CDT, Duration: 30 day, Stop date: 03/09/17 7:09:00 CDT Notes: (Same as:Methergine) Start Date: 02/07/17 Stop Date: 02/09/17 Status: Discontinued methylergonovine 0.2 mg, 1 mL, Route: IM, Drug form: INJ, ONCALL, Dosing Weight 106.364, kg, Star t date: 02/05/17 20:00:00 CDT, Duration: 30 day, Stop date: 03/07/17 19:59:00 CD T Notes: (Same as:Methergine) Start Date: 02/05/17 Stop Date: 02/07/17 Status: Discontinued misoprostol 25 microgram, 0.25 tab, Route: VAG, Drug form: TAB, Q3H, Dosing Weight 106.364, kg, Start date: 02/05/17 20:00:00 CDT, Duration: 30 day, Stop date: 03/07/17 17: 00:00 CDT Notes: (Same as:Cytotec) Take with food Start Date: 02/05/17 Stop Date: 02/06/17 Status: Discontinued misoprostol 1,000 microgram, 5 tab, Route: WA, Drug form: TAB, ONCALL, Dosing Weight 106.364 , kg, Start date: 02/05/17 20:00:00 CDT, Duration: 1 doses or times Notes: (Same as:Cytotec) Take with food Start Date: 02/05/17 Stop Date: 02/07/17 Status: Discontinued ondansetron 4 mg, 2 mL, Route: IVP, Drug form: INJ, Q8H, Dosing Weight 106.364, kg, PRN Naus ea & Vomiting, Start date: 02/07/17 7:10:00 CDT, Duration: 30 day, Stop date: 03/09/17 7:09:00 CDT Notes: (Same as: Christelle) MEDICATION WASTE Product Size: 4 mgProduct Was kojo: ___ mg Start Date: 02/07/17 Stop Date: 02/09/17 Status: Discontinued ondansetron 4 mg, 2 mL, Route: IVP, Drug form: INJ, Q8H, Dosing Weight 106.364, kg, PRN Naus ea & Vomiting, Start date: 02/05/17 19:13:00 CDT, Duration: 30 day, Stop date: 03/07/17 19:12:00 CDT Notes: (Same as: Christelle) MEDICATION WASTE Product Size: 4 mgProduct Was kojo: ___ mg Start Date: 02/05/17 Stop Date: 02/07/17 Status: Discontinued oxytocin 30 units/NS 500 ml 30 unit 30 unit, 500 mL, Rate: 42 ml/hr, Infuse over: 11.9 hr, Dosing Weight 106.364, kg , Route: IV, Total Volume: 500 mL, Start date: 02/07/17 7:10:00 CDT, Duration: 2 day, Stop date: 02/09/17 7:09:00 CDT, Replace Every: 11.9 hr Start Date: 02/07/17 Stop Date: 02/09/17 Status: Completed oxytocin 30 units/NS 500 ml 30 unit 30 unit, 500 mL, Rate: 42 ml/hr, Infuse over: 11.9 hr, Dosing Weight 106.364, kg , Route: IV, Total Volume: 500 mL, Start date: 02/05/17 19:13:00 CDT, Duration: 2 day, Stop date: 02/07/17 19:12:00 CDT, Replace Every: 11.9 hr Start Date: 02/05/17 Stop Date: 02/07/17 Status: Discontinued oxytocin 30 units/NS 500 ml 30 unit 30 unit, 500 mL, Rate: Titrate, Dosing Weight 106.364, kg, Route: IV, Total Volu me: 500 mL, Start date: 02/05/17 19:15:00 CDT, Duration: 2 day, Stop date: 02/07 19:14:00 CDT, Replace Every: 24 hr Start Date: 02/05/17 Stop Date: 02/07/17 Status: Discontinued Multivitamins oral tablet 1 tab, Route: PO, Drug Form: TAB, Dosing Weight 106.364, kg, Daily, Start date: 02/07/17 9:00:00 CDT, Duration: 30 day, Stop date: 03/08/17 9:00:00 CDT Start Date: 02/07/17 Stop Date: 02/09/17 Status: Discontinued terbutaline 0.25 mg, 0.25 mL, Route: SUB-Q, Drug form: INJ, PRN, Dosing Weight 106.364, kg, PRN Other -See Comment, Start date: 02/05/17 19:13:00 CDT, Duration: 1 doses or times, Stop date: Limited # of times Notes: DO NOT USE IN ROD GREASER AREA(Same As: Landon) Start Date: 02/05/17 Stop Date: 02/07/17 Status: Discontinued Tylenol 325 mg, 1 tab, Route: PO, Drug form: TAB, Q6H, Dosing Weight 106.364, kg, PRN Fo r Temp > 100.4 F, Start date: 02/07/17 3:24:00 CDT, Duration: 30 day, Stop date: 03/09/17 3:23:00 CDT Notes: Do not exceed 4 gm/day. (Same as: Tylenol) Start Date: 02/07/17 Stop Date: 02/09/17 Status: Discontinued zolpidem 5 mg, 1 tab, Route: PO, Drug form: TAB, Bedtime, Dosing Weight 106.364, kg, PRN Sleep, Start date: 02/07/17 7:10:00 CDT, Duration: 30 day, Stop date: 03/09/17 7 :09:00 CDT Notes: (Same As: Ambien) Start Date: 02/07/17 Stop Date: 02/09/17 Status: Discontinued Results BLOOD BANK RESULTS Most recent to 1 2 oldest [Reference Range]: ABO/Rh O POS *Unknown* (02/05/17 7:25 PM) Antibody Scrn Negative (02/05/17 7:25 PM) Rhig Reqd See Note 1 (02/05/17 7:25 PM) 1Result Comment: 02/05/2017 20:21 [id number] This patient is not a candidate for Rh(O)D immune globulin. IMMUNOLOGY Most recent to 1 2 oldest [Reference Range]: Treponemal Scr [Non Non Reactive Reactive] *NA* (02/05/17 7:25 PM) HIV. [Negative] Negative *NA* (02/05/17 7:25 PM) Hep Bs Ag [Negative] Negative *NA* (02/05/17 7:25 PM) HEMATOLOGY Most recent to 1 2 oldest [Reference Range]: WBC [3.7-10.4 K/CMM] 9.7 K/CMM (02/05/17 7:25 PM) RBC [4.20-5.40 4.29 M/CMM M/CMM] (02/05/17 7:25 PM) Hgb [12.0-16.0 g/dL] 10.7 g/dL 12.1 g/dL *LOW* (02/05/17 7:25 PM) (02/08/17 4:57 AM) Hct [36.0-48.0 %] 31.6 % 35.7 % *LOW* *LOW* (02/08/17 4:57 AM) (02/05/17 7:25 PM) MCV [80.0-98.0 fL] 83.1 fL (02/05/17 7:25 PM) MCH [27.0-31.0 pg] 28.3 pg (02/05/17 7:25 PM) MCHC [32.0-36.0 34.0 g/dL g/dL] (02/05/17 7:25 PM) RDW [11.5-14.5 %] 14.8 % *HI* (02/05/17 7:25 PM) Platelet [133-450 264 K/CMM K/CMM] (02/05/17 7:25 PM) MPV [7.4-10.4 fL] 8.3 fL (02/05/17 7:25 PM) Segs [45.0-75.0 %] 64.4 % (02/05/17 7:25 PM) Lymphocytes 26.2 % [20.0-40.0 %] (02/05/17 7:25 PM) Monocytes [2.0-12.0 7.8 % %] (02/05/17 7:25 PM) Eosinophils [0.0-4.0 1.1 % %] (02/05/17 7:25 PM) Basophils [0.0-1.0 0.5 % %] (02/05/17 7:25 PM) Segs-Bands # 6.3 K/CMM [1.5-8.1 K/CMM] (02/05/17 7:25 PM) Lymphocytes # 2.5 K/CMM [1.0-5.5 K/CMM] (02/05/17 7:25 PM) Monocytes # [0.0-0.8 0.8 K/CMM K/CMM] (02/05/17 7:25 PM) Eosinophils # 0.1 K/CMM [0.0-0.5 K/CMM] (02/05/17 7:25 PM) Immunizations Not Given Vaccine Date Status Refusal Reason diphtheria/pertussis, acel/tetanus adult 02/09/17 Not Given Patient Refuses Procedures Procedure Date Related Diagnosis Body Site Appendix operation 2003 Social History Social History Type Response Substance Abuse Use: None. Sexual Sexually active: Yes. Alcohol Never Smoking Status Never smoker; Exposure to Tobacco Smoke None; Cigarette Smoking Last 365 Days No; Reg Smoking Cessation Counseling No Assessment and Plan Extracted from: Title: OB Admission H&P L&D/ PreOp Author: Yin Moses MD Date: 02/05/17 * Impression and Plan Diagnosis 40 weeks gestation of ([id number], Working, Medical). condition: Stable. Interpretation category: I. Maternal condition: Stable. Plan Admit. Patient will have cervical ripening with cytotec as requested by Dr. Abel followed by oxytocin once favorability is obtained. 1. 27 yo at 40 weeks EGA 2. Admit for cervical ripening with cytotec 3. Continuous monitoring 4. Bed rest
== END 2018-07-06 04:20 | disposition left against medical advice (07) ==
LOC: FSED 04:00
DX: M79.605 Pain in left leg (principal); S76.112A Strain of left quadriceps muscle, fascia and tendon, initial encounter; S46.112A Strain of muscle, fascia and tendon of long head of biceps, left arm, initial encounter